=== PATIENT | female | born 1975 | race Caucasian/White ===

== ENCOUNTER 2025-04-24 07:54 | Outpatient (CLI) | payer OTHER, SELFPAY ==
--- NOTE | ~2025-04-24 | MM_ITS ---
EXAMINATION: MM screening pito BI w luda HISTORY: Screening TECHNIQUE: Craniocaudal and mediolateral oblique 3-D tomosynthesis images were obtained and synthetic 2-D images were generated. CAD analysis was submitted and interpreted. COMPARISON: No prior mammogram is available for comparison at this institution. BREAST PARENCHYMAL COMPOSITION: There are scattered areas of fibroglandular density. FINDINGS: There is no evidence of suspicious mass, calcification, or architectural distortion to sugg est malignancy in either breast. There has been no suspicious interval change. IMPRESSION: 1. No mammographic evidence of malignancy. 2. Recommend routine screening mammography in one year. BI-RADS Category 1: Negative Reviewed, dictated and finalized at location B.
[2025-04-24 08:21] LABS: Basophils Absolute Auto 0.06 K/mm3 (0.00-0.10); Basophils Percent Auto 0.5 % (0.0-1.0); Eosinophils Absolute Auto 0.36 K/mm3 (0.02-0.50); Eosinophils Percent Auto 3.2 % (1.0-6.0); Hematocrit 41.1 % (35.0-49.0); Hemoglobin 13.3 g/dL (12.0-15.0); Immature Granulocyte Absolute 0.05 K/mm3 (0.00-0.00); Immature Granulocyte Percent A 0.4 % (0.0-0.0); Lymphocytes Absolute Auto 3.17 K/mm3 (1.10-4.50); Lymphocytes Percent Auto 28.2 % (18.0-42.0); Mean Corpuscular HGB Conc 32.4 g/dL (32-36); Mean Corpuscular Hemoglobin 29.4 pg (27.0-31.0); Mean Corpuscular Volume 90.9 fL (78.0-102.0); Mean Platelet Volume 9.5 fl (9.2-11.8); Monocytes Absolute Auto 0.64 K/mm3 (0.10-0.90); Monocytes Percent Auto 5.7 % (2.0-11.0); Neutrophils Absolute Auto 6.98 K/mm3 (1.70-7.20); Platelet Count Result 437 K/mm3 (150-420); Red Blood Count 4.52 M/mm3 (4.20-5.40); Red Cell Distribution Width 15.8 % (11.6-14.4); White Blood Count 11.3 K/mm3 (4.8-10.8)
[2025-04-24 08:22] LABS: Add Urine Microscopic? YES; Appearance Urine Clear (Clear); Bilirubin Urine Negative (Negative); Blood Urine 1+ (Negative); Color Urine Light Yellow (Yellow); Glucose Urine UA Negative (Negative); Ketones Urine Negative (Negative); Leukocyte Esterase Ur Negative (Negative); Nitrate Urine Negative (Negative); Protein Urine Negative (Negative); Specific Grav Ur <= 1.005 (1.010-1.020); Urobilinogen Urine 0.2 mg/dL (0.2-1.0); pH Urine 6.5 (5.0-8.0)
[2025-04-24 08:27] LABS: RBC Urine 0-2 /hpf (0-2); Squamous Epithelial Cell Urine Few /hpf (Few); WBC Urine 0-3 /hpf (0-3)
[2025-04-24 08:28] LABS: Bacteria Urine Trace /hpf
[2025-04-24 09:18] LABS: Alanine Aminotransferase 13 U/L (6-35); Albumin Level 4.1 g/dL (3.5-5.1); Alkaline Phosphatase 60 U/L (38-126); Anion Gap 2 mmol/L (4-12); Aspartate Amino Transferase 23 U/L (14-36); Bilirubin,Total 0.8 mg/dL (0.2-1.3); Blood Urea Nitrogen 15 mg/dL (7-17); Calcium 9.1 mg/dL (8.4-10.2); Carbon Dioxide 28 mmol/L (22-30); Chloride 109 mmol/L (98-107); Cholesterol 241 mg/dL (0-200); Estimated Glomerular Filt Rate > 60; Glucose 80 mg/dL (65-110); HDL Direct 59 mg/dL; LDL Cholesterol Calculated 153 mg/dL (<130); Osmolality Calculated 287 mOsm/kg (285-295); Potassium 4.3 mmol/L (3.4-5.0); Sodium 139 mmol/L (137-145); Total Protein 6.5 g/dL (6.3-8.2); Triglycerides 147 mg/dL (<150)
[2025-04-24 09:48] LABS: Thyroid Stimulating Hormone 0.719 uIU/mL (0.465-4.680)
== END 2025-04-24 07:55 | disposition home or self-care (01) ==
LOC: CHSIMG 07:59
PROVIDERS: PCP Internal Medicine; Visit Provider Internal Medicine
DX: Z00.00 Encounter for general adult medical examination without abnormal findings (principal); Z12.31 Encounter for screening mammogram for malignant neoplasm of breast
CPT/HCPCS: 36415; 77063; 77067; 80053; 80061; 81001; 84443; 85025

== ENCOUNTER 2025-04-27 08:52 | Outpatient (CLI) | payer OTHER, SELFPAY ==
--- NOTE | 2025-04-27 | CY_PTH ---
PATIENT: Tamia Prado LOC: [facility] U#:[id number] AGE/SX: 49/F ROOM: RE04/27/[address]: Silvestre Braswell MD : 1975 BED: DIS: 04/27/2025 SPEC #: [id number] RECD: 04/27/25 09:30 STATUS: ELMER REMarianna #: [id number] CHELSEA: 04/27/25 00:[address]: Silvestre Braswell DEPT: [facility] Cytology RECD BY: Delmy Estrella MLT, ([facility]) Tissues: A - Thin Prep Non-Gyne Procedures: Thin Prep Non-newspaper illustrator
--- NOTE | 2025-04-27 | CONSULT_PTH ---
PATIENT: Tamia Prado LOC: [facility]#:[id number] AGE/SX: 49/F ROOM: RE04/27/[address]: Silvestre Braswell MD : 1975 BED: DIS: 04/27/2025 SPEC #: [id number] RECD: 04/27/25 09:32 STATUS: ELMER REMarianna #: [id number] C[place]SEA: 04/27/25 00:[address]: Silvestre Braswell DEPT: [facility] Consult RECD BY: Delmy Estrella MLT, ([facility]) Tissues: A - Peripheral Smear Procedures: Hematology Consult
[2025-04-27 09:07] LABS: Basophils Absolute Auto 0.08 K/mm3 (0.00-0.10); Basophils Percent Auto 0.7 % (0.0-1.0); Eosinophils Absolute Auto 0.32 K/mm3 (0.02-0.50); Eosinophils Percent Auto 2.7 % (1.0-6.0); Hemoglobin 14.3 g/dL (12.0-15.0); Immature Granulocyte Absolute 0.06 K/mm3 (0.00-0.00); Immature Granulocyte Percent A 0.5 % (0.0-0.0); Lymphocytes Absolute Auto 3.13 K/mm3 (1.10-4.50); Lymphocytes Percent Auto 26.3 % (18.0-42.0); Mean Corpuscular HGB Conc 32.5 g/dL (32-36); Mean Corpuscular Hemoglobin 29.1 pg (27.0-31.0); Mean Corpuscular Volume 89.6 fL (78.0-102.0); Mean Platelet Volume 9.6 fl (9.2-11.8); Monocytes Absolute Auto 0.45 K/mm3 (0.10-0.90); Monocytes Percent Auto 3.8 % (2.0-11.0); Neutrophils Absolute Auto 7.86 K/mm3 (1.70-7.20); Platelet Count Result 474 K/mm3 (150-420); Red Blood Count 4.91 M/mm3 (4.20-5.40); Red Cell Distribution Width 15.3 % (11.6-14.4); White Blood Count 11.9 K/mm3 (4.8-10.8)
[2025-04-27 09:16] LABS: Add Urine Microscopic? YES; Appearance Urine Clear (Clear); Bilirubin Urine Negative (Negative); Blood Urine 1+ (Negative); Color Urine Yellow (Yellow); Glucose Urine UA Negative (Negative); Ketones Urine Negative (Negative); Leukocyte Esterase Ur Negative (Negative); Nitrate Urine Negative (Negative); Protein Urine Trace (Negative); Specific Grav Ur 1.025 (1.010-1.020); Urobilinogen Urine 0.2 mg/dL (0.2-1.0)
[2025-04-27 09:25] LABS: RBC Urine 0-2 /hpf (0-2); Squamous Epithelial Cell Urine Many /hpf (Few); WBC Urine 0-3 /hpf (0-3)
[2025-04-27 09:26] LABS: Bacteria Urine Trace /hpf; Mucus Urine Moderate /lpf
[2025-04-27 09:35] LABS: CRP < 0.5 mg/dL (<1.0); Iron 60 ug/dL (37-170)
[2025-04-27 09:40] LABS: Percent Iron Saturation 19 % (20-50)
== END 2025-04-27 08:53 | disposition home or self-care (01) ==
PROVIDERS: PCP Internal Medicine; Visit Provider Internal Medicine
DX: R79.89 Other specified abnormal findings of blood chemistry (principal); R31.21 Asymptomatic microscopic hematuria
CPT/HCPCS: 36415; 81001; 82728; 83540; 83550; 85025; 86140; 88112

== ENCOUNTER 2025-05-27 17:38 | Emergency (ER) | payer OTHER, SELFPAY ==
[2025-05-27 17:38] VITALS: BP 110/67; PULSE 93; RESP 18; TEMP 37.3; O2SAT 98
--- OUTSIDE RECORDS SUMMARY | 2025-05-27 17:40 | XMS_ITS | Clinical Summary ---
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 Gender Identity Not on file Sexual Orientation Not on file Last Filed Vital Signs Vital Sign Reading Time Taken Comments Blood Pressure 124/68 07/05/2013 3:03 PM CDT Pulse 76 07/05/2013 3:03 PM CDT Temperature - - Respiratory Rate - - Oxygen Saturation - - Inhaled Oxygen Concentration - - Weight 79.4 kg (175 lb) 07/05/2013 3:03 PM CDT Height 160 cm (5' 3) 07/05/2013 3:03 PM CDT Body Mass Index 31 07/05/2013 3:03 PM CDT Plan of Treatment Health Maintenance Due Date Last Done Comments Cervical Cancer Screening Pa p Smear (Age 30 to 64) Every 3 Years 1977 Colorectal Cancer Screening Colonoscopy (10 Years) 1977 Annual Physical 1980 Hepatitis C 1995 DTaP, Tdap and Td Vaccines ( 1 - Tdap) 1996 Hepatitis B Vaccines (1 of 3 - 19+ 3-dose series) 1996 Cervical Cancer Screening Pa p with HPV Testing (Age 30 to 64) Every 5 Years 2007 Cervical Cancer Screening with HPV 2007 Mammogram Screening 2017 COVID-19 Vaccine (2023-2 5 season) 2024 Meningococcal B Vaccine Aged Out No l onger eligible based on patient's age to complete this topic Meningococcal Vaccine Aged Out No martin jong eligible based on patient's age to complete this topic Pneumococcal Vaccine: Pediat rics (0 to 5 Years) and At-Risk Patients (6 to 49 Years) Aged Out No longer eligible b ased on patient's age to complete this topic RSV Immunizations Under 20 Months Aged Out No longer eligible based on patient's age to complete this topic
--- NOTE | 2025-05-27 17:47 | ED_ITS ---
HPI - Back Pain/Injury General Chief Complaint: Back Pain/Injury Stated Complaint: back pain Time Seen by Provider: 05/27/25 17:42 Source: patient and family Mode of arrival: ambulatory Limitations: no limitations History of Present Illness HPI Narrative: This is a 49-year-old female with a history of back pain presents with some right lower back pain with some weakness and numbness radiating down her right leg with some no saddle paresthesias no fever chills no injuries. MD elicited complaint: back pain Pertinent past history: prior back pain Onset (ago): day(s) Timing: constant Severity: moderate Pain scale (0-10): 7 Quality: aching and spasming Location: lumbar spine Context: while lifting, turning/twisting and bending Related Data Allergies Allergy/AdvReac Type Severity Reaction Status Date / Time cephalexin (From Keflex) Allergy Mild Rash Verified 05/27/25 17:44 Review of Systems Review of Systems: All systems reviewed & are unremarkable except as noted in HPI and below PMFSH Past Medical History Medical History Chronic back pain Exam Const: General: healthy appearing and no acute distress Nutritional Appearance: well nourished Orientation/consciousness: patient oriented x3 Limitations: no limitations Neck: Neck: normal visual inspection, no lymphadenopathy and no meningeal signs Chest: Chest palpation & inspection: normal inspection of the chest Resp: Effort & Inspection: normal respiratory effort Auscultation: clear to auscultation bilaterally Cardio: Rate: regular rate Rhythm: regular rhythm GI: GI Palp: Yes Soft to palpation Auscultation: normal bowel sounds : General: Yes bladder normal to palpation Urinary Catheter: Urinary Catheter: patent and draining Back/Spine/Pelvis: Back: no CVA tenderness Skin: General skin exam: normal color Rashes: no rashes Wounds: no wounds Neuro: General: patient oriented x3, moves all extremities, no meningeal signs and no focal motor deficits Extrem: Other: L5 right paravertebral tenderness with palpation with a positive straight leg raising test on the right Course Course Emergency Course: patient received 60mg IM Toradol along with 60mg IM muscle relaxer, after reassessment patient's pain level has improved. Vital Signs Vital signs: Vital Signs Temperature 37.3 C 05/27/25 17:38 Pulse Rate 93 05/27/25 17:38 Respiratory Rate 18 05/27/25 17:38 Blood Pressure 110/67 05/27/25 17:38 Pulse Oximetry 98 05/27/25 17:38 Oxygen Delivery Room Air 05/27/25 17:38 Temperature 37.3 C 05/27/25 17:38 Pulse Rate 93 05/27/25 17:38 Respiratory Rate 18 05/27/25 17:38 Blood Pressure 110/67 05/27/25 17:38 Pulse Oximetry 98 05/27/25 17:38 Oxygen Delivery Room Air 05/27/25 17:38 Critical Care Time Critical Care Time Critical Care Time: No Discharge Plan Discharge Clinical Impression: Sciatica Qualifiers: Laterality: right Qualified Code(s): M54.31 - Sciatica, right side Strain of lumbar region Qualifiers: Encounter type: initial encounter Qualified Code(s): S39.012A - Strain of muscle, fascia and tendon of lower back, initial encounter Patient Disposition: Home Condition: Stable Instructions: Antibiotic Form, Sciatica (ED), Lumbar Radiculopathy (ED) Additional Instructions: Advised patient take medication as prescribed and to follow with primary care physician within 1 week for further evaluation treatment. Patient Language: [place] Prescriptions: New cyclobenzaprine 5 mg tablet 5 mg PO TID Qty: 20 0RF naproxen 500 mg tablet 500 mg PO BID PRN (Reason: pain) Qty: 14 0RF Follow-up/Referrals: Silvestre Braswell MD [Primary Care Provider] - Time of Disposition: 17:51
[2025-05-27] MEDS: ORPHENADRINE CITRATE 30 MG/ML 2 ML VIAL 60 MG IM (17:57)
[2025-05-27] MEDS: KETOROLAC (*BKC) 60 MG/2 ML VIAL IM (17:57)
--- OUTSIDE RECORDS SUMMARY | 2025-05-27 18:00 | XMS_ITS | Clinical Summary ---
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
[2025-05-27 18:20] VITALS: BP 109/70; PULSE 65; RESP 18; O2SAT 99
== END 2025-05-27 18:20 | disposition home or self-care (01) ==
LOC: CHSED 17:58
PROVIDERS: Emergency Provider Emergency Medicine; PCP Internal Medicine
DX: M54.31 Sciatica, right side (principal); S39.012A Strain of muscle, fascia and tendon of lower back, initial encounter; X58.XXXA Exposure to other specified factors, initial encounter
CPT/HCPCS: 96372; 99284; J1885; J2360

== ENCOUNTER 2025-05-30 10:34 | Outpatient (CLI) | payer OTHER, SELFPAY ==
--- NOTE | ~2025-05-30 | XR_ITS ---
Lumbosacral Spine: AP and lateral views Clinical History: Pain Findings: There is mild dextroscoliosis of the thoracolumbar spine. There is posterior fusion from L5 to S1, with transitional S1 vertebral body present. There is multilevel moderate degenerative disc n arrowing. There is minimal facet arthropathy. There is grade 1 anterolisthesis of L5 over S1. The sac roiliac joints are normally outlined. Impression: Posterior fusion from L5 to S1 with grade 1 anterolisthesis at this level, and transitional S1 verteb ral body. Mild to moderate degenerative change in the upper lumbar spine, as above. Reviewed, dictated and finalized at location . Impression: Posterior fusion from L5 to S1 with grade 1 anterolisthesis at this level, and transitional S1 vertebral body. Mild to moderate degenerative change in the upper lumbar spine, as above.
--- OUTSIDE RECORDS SUMMARY | 2025-05-30 10:54 | XMS_ITS | Clinical Summary ---
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
== END 2025-05-30 10:35 | disposition home or self-care (01) ==
PROVIDERS: PCP Internal Medicine; Visit Provider Internal Medicine
DX: M54.50 Low back pain, unspecified (principal); M54.16 Radiculopathy, lumbar region
CPT/HCPCS: 72100